=== PATIENT | male | born 1985 | race Caucasian/White ===

== ENCOUNTER 2022-05-30 17:04 | Observation (INO) | payer OTHER, SELFPAY ==
[2022-05-30 17:07] VITALS: BP 159/99; PULSE 110; RESP 18; TEMP 36.6; O2SAT 99; BMI 30.1
[2022-05-30] MEDS: GLUCAGON,HUMAN RECOMBINANT 1 MG/ML VIAL IV (18:11)
[2022-05-30 18:57] LABS: COVID19 -Nasal RAPID Negative (Negative)
--- NOTE | 2022-05-30 19:21 | ED_ITS ---
HPI - Recheck/Abnormal Lab/Rx General Chief Complaint: Recheck/Abnormal Lab/Rx Stated Complaint: choked while eating dinner 30 min ago Time Seen by Provider: 05/30/22 17:57 Source: patient Mode of arrival: Ambulatory History of Present Illness HPI narrative: 36M nonsmoker, nondrinker presents with a choking sensation after eating some beef Maryann earlier tonight. He denies any prior interventions for foreign body but does state that he is had food get caught in the past. He denies any sharp objects and states that he is certain in his a piece of beef. He is had vomiting and trouble controlling secretions but denies any trouble breathing. He is had no chest pain or shortness of breath and denies any fever or chills. He is not dizzy nor weak or lightheaded. Related Data Home Medications Medication Instructions Recorded Confirmed No Known Home Medications 05/30/22 05/30/22 Allergies Allergy/AdvReac Type Severity Reaction Status Date / Time cefaclor [[facility] Allergy Intermediate HIVES Verified 05/30/22 17:07 Review of Systems Review of Systems Narrative: GENERAL: Denies chills, fatigue, malaise, fever, sweats. HEENT: See HPI RESPIRATORY: Denies dyspnea, cough, wheezing, hemoptysis, sputum. CARDIOVASCULAR: Denies chest pain, palpitations, orthopnea, edema, GASTROINTESTINAL: See HPI : Denies dysuria, frequency, incontinence, hematuria, urinary retention. MUSCULOSKELETAL: denies weakness, joint pain, or bony pain SKIN: Denies rash, skin lesions, or other NEUROLOGIC: Denies weakness, headache, numbness, change in speech, confusion, seizures, incoordination. PSYCHIATRIC: No concerning psychosocial issues. 12 point review of systems is negative except for those stated above Patient History Social History household members: none Smoking Status: Current every day smoker alcohol intake: never Smoking Status: Current every day smoker tobacco type: vaping Substance Use Type: marijuana Exam Narrative Exam Narrative: GENERAL: [36] year old patient appears stated age. Well-developed patient, in mild distress. Holding ememsis bag HEAD: Atraumatic. Normocephalic. EYES: Pupils equal round and reactive. Extraocular motions intact. No scleral icterus. No injection or drainage. ENT: Nose without bleeding, purulent drainage. Throat without erythema, tonsillar hypertrophy or exudate. Airway patent. NECK: Trachea midline. Non tender CARDIOVASCULAR: Regular rate and rhythm without murmurs, gallops, or rubs. RESPIRATORY: Clear to auscultation. Breath sounds equal bilaterally. No wheezes, rales, or rhonchi. GASTROINTESTINAL: Abdomen soft, non-tender, nondistended. EXTREMITIES: No edema or joint tenderness. BACK: Nontender without deformity or crepitance. No flank tenderness. NEURO: AOx3. SKIN: No rash or erythema of visible areas Initial Vital Signs Initial Vital Signs: Vital Signs Temperature 97.9 F 05/30/22 17:07 Pulse Rate 110 H 05/30/22 17:07 Respiratory Rate 18 05/30/22 17:07 Blood Pressure 159/99 H 05/30/22 17:07 Pulse Oximetry 99 05/30/22 17:07 Oxygen Delivery Method 05/30/22 17:07 Course Orders Ordered: Sodium Chloride (Normal Saline 0.9%) 1,000 mls @ 125 mls/hr IV CONT MAYURI Last Admin: 05/30/22 20:28 Dose: 125 mls/hr Documented By: NONA Ondansetron HCl (Ondansetron 4 Mg/2 Ml Inj) 4 mg IV Q4HR PRN PRN Reason: Nausea And Vomiting Discontinued Medications Glucagon (Glucagon,Human Recombinant 1 Mg/Ml Vial) 1 mg IV NOW ONE Stop: 05/30/22 17:58 Last Admin: 05/30/22 18:11 Dose: 1 mg Documented By: MARY Reevaluation(s) Reevaluation #1: Patient given glucagon and immediately followed by belkys gutierres, no improvement, still trouble controlling secretions and not able to swallow liquids Consultations Consultation #1: Discussed with on-call surgeon, Dr. Haines, requests patient be admitted on his service kept NPO and will take to the OR tomorrow Vital Signs Vital signs: Vital Signs - 8 hr 05/30/22 17:07 Temperature 97.9 F Pulse Rate 110 H Respiratory Rate 18 Blood Pressure 159/99 H Pulse Oximetry 99 Oxygen Delivery Method Room Air MDM - Recheck/Abnormal Lab/Rx Lab Data Labs: Lab Results 05/30/22 Range/Units 17:25 SARS-CoV-2 (PCR) Negative (Negative) MDM Narrative Medical decision making narrative: [36-year-old male with inability to swallow after eating beef maryann] Multiple etiologies for patient's symptoms considered including, but not limited to: [Esophageal foreign body, stricture, spasm versus other] Consultations: Discussed with Dr. Haines as noted above Patient's symptoms consistent with esophageal food body, no difficulty breathing, no improvement after glucagon, patient will require hospitalization for EGD Findings, diagnosis and plan discussed with patient who understands and agrees Discharge Plan Departure Patient Disposition: Admitted as Observation Clinical Impression: Esophageal foreign body Admit Date/Time: 05/30/22 19:25 Admit Provider: Skinny Haines
[2022-05-30 19:37] VITALS: BMI 30.1
[2022-05-30 20:00] VITALS: BP 134/86; PULSE 93; RESP 17; TEMP 36.3; O2SAT 96
[2022-05-30] MEDS: SODIUM CHLORIDE 0.9% 1,000 ML 125 ML IV (20:28)
[2022-05-31] VITALS (10 sets, daily range): BP systolic 114–152; BP diastolic 76–107; PULSE 73–93; RESP 13–22; TEMP 36.2–36.9; O2SAT 93–98; BMI 30.1
--- NOTE | 2022-05-31 00:58 | PC.NURSE ---
Change in Patient Status 05/30/22@2348 pt notifies this nurse of x2 unmeasured emesis with c/o increased pressure and pain with breathing, w/o c/o difficulty breathing. Pt reports existing hiccups stopped after emesis episode. Emesis contains food particulate and appears clear with coffee grounds. Vital Signs BP: 146/102 (117) left arm; 152/107(130) right arm HR: 73 bpm O2: 97% RA RR: 21 T: 98.4 F (oral) 05/30/22@2358 pt reports pain in throat and breathing is subsiding. Pt readily has access to suction at bedside, call light within reach, and bed L&L position. Pt is quietly resting in bed while intermittently using suction prn. 05/31/22@0001 Attending provider, Skinny Haines, notified by phone of pt's change in condition. No new orders given at this time. Instructed to continue with current POC and to re-evaluate per SOC
[2022-05-31] MEDS: SODIUM CHLORIDE 0.9% 1,000 ML 125 ML IV (05:56)
[2022-05-31] MEDS: ONDANSETRON 4 MG/2 ML INJ IV (08:12)
--- NOTE | 2022-05-31 09:39 | P.HP_ITS ---
History of Present Illness History of Present Illness Date Patient Seen: 05/31/22 Time Patient Seen: 09:39 Chief complaint: choked while eating dinner 30 min ago Narrative: Reggie is a 36-year-old man who came to the ER overnight because he swallowed some meat when he was eating some Maryann which became lodged in his esophagus. He has not been able to swallow anything including his saliva. He did gag and cough up some material in the middle of the night but he still feels as if he has something stuck in his esophagus. He has never had an EGD before. He has experienced more and more difficulty swallowing certain types of food, mostly meat, in the past several months but he has never had it this bad before and has never come to the emergency room before last night. He has a history of using chewing tobacco in the past. Patient History Family & Social History Social History: household members none Prior Living Arrangements Apartment/Condo Safety & Behavioral: Feels Safe in Current Yes Environment Been Physically Hurt or No Threatened By a Person Tobacco & Substance use: Tobacco type e-cigarettes Smoking Status Current every day smoker alcohol intake never Substance Use Type marijuana Meds Home Medications and Allergies Home Medications Medication Instructions Recorded Confirmed Type No Known Home Medications 05/30/22 05/30/22 History Allergies Allergy/AdvReac Type Severity Reaction Status Date / Time cefaclor [From [facility]] Allergy Intermediate HIVES Verified 05/30/22 17:07 Exam Vital Signs (past 8 hours): - 05/31/22 06:00 05/31/22 08:40 Temperature 97.2 F L 97.6 F Pulse Rate 80 80 Respiratory Rate 18 17 Blood Pressure 140/90 152/91 H Pulse Oximetry 95 96 Oxygen Flow Rate 0 0 Oxygen Delivery Method Room Air Oxygen Flow Rate 0 Const General: No acute distress Orientation: alert and awake Resp Effort & Inspection: normal respiratory effort Objective Labs Labs: Laboratory Results - last 24 hr 05/30/22 17:25 SARS-CoV-2 (PCR) Negative Assessment & Plan Assessment and plan (1) Esophageal foreign body: Qualifiers: Encounter type: initial encounter Qualified Code(s): T18.108A - Unspecified foreign body in esophagus causing other injury, initial encounter Status: Acute Plan Recommend esophagogastroduodenoscopy and removal of foreign body. This will be performed by me or one of my partners as soon as there is OR availability. Time Spent With Patient Critical Care time: I spent a total of [] minutes of critical care time on this patient's care today; this time is exclusive of procedural time. Quality VTE Deep Vein Thrombosis/Pulmonary Embolism Present on Admission: No
--- NOTE | 2022-05-31 14:34 | CM.DANOTE ---
Initial DCP Assessment Note Pt is a 36 yo male, resident of [place] , arrives with persistent feeling that something is stuck in his esophagus after eating meat during a recent meal. Patient scheduled for EGD and likely removal of foreign body today by general surgery team PCP: None Listed Payer: Nikunj RUTH Reviewed chart, pt discussed in multidisciplinary rounds this morning. 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 Patient expected to discharge home w/friends and family No barriers identified at this time to patient's safe discharge home w/family to assist; close outpatient f/u recommended. CM team will plan to follow closely in case any DC needs or concerns arise NATA Pérez Discharge Planning/Care Management CM Discharge Assessment Start: 05/31/22 14:30 Freq: Status: Active Protocol: Document 05/31/22 14:30 ANISA (Rec: 05/31/22 14:34 ANISA [id number]) Discharge Planning Assessment Assigned Layer Out NATA Bain DPOA/Assigned Designee Name Jada Recinos Contact Information [phone] Advance Directives? No History Provided By Patient,Medical Record Prior Living Arrangements Apartment/Condo Household Members none Type of transporation used prior to Drives own vehicle admit Independent with ADL's Yes Is patient alert and oriented? Yes Barriers to Discharge No Comment Home upon discharge expected Discharge Plan Home Transportation Arrangement Family Referrals Initiated None needed
--- NOTE | 2022-05-31 14:47 | PM.PREOP ---
Pre-operative Note Interval Note History & Physical reviewed/Exam performed by Physician: Yes Changes to H&P: No H&P completed within 30 days and has changed as indicated here:: 36-year-old man with a esophageal foreign body here for therapeutic EGD. Overview procedure was discussed with the patient. Procedural risks bleeding, esophageal injury were discussed. Questions answered he is in agreement with this plan.
--- NOTE | 2022-05-31 14:49 | PM.OP.EGD ---
Operative Date/Time/Diagnoses Date of procedure: 05/31/22 Time of procedure: 14:49 Pre-op diagnosis: Esophageal foreign body Post-op diagnosis: same Procedure & Clinicians Study performed: Esophagoduodenoscopy Same procedure as scheduled: Yes Indications: Esophageal foreign body Surgeon: Guillaume Rosado Procedure Notes Procedure in detail: Patient placed in left lateral decubitus position. Time out was performed. Procedural sedation was administered by anesthesia. A bite block was placed. the scope was inserted into the mouth and advanced through the esophagus. There was no esophageal obstruction, stricture or significant esophagitis. Stomach was largely normal in its appearance. The pylorus was intubated and the duodenum was normal to the 2nd portion. The scope was retroflexed within the stomach and there was no hiatal hernia. The scope was withdrawn into the esophagus the Z line was seen at 38 cm from the incisions. Stomach was desufflated and scope removed. Patient tolerated procedure well. Specimen(s): none sent Impression: Normal esophagoduodenoscopy. Post-procedure Plan for aftercare: May discharge home Disposition: same day surgery
== END 2022-05-31 19:00 | disposition home or self-care (01) ==
LOC: ED 18:17 → AC 19:25
PROVIDERS: Surgery; Admitting Provider Surgery; Emergency Provider Emergency Medicine; Visit Provider Surgery
PROC: 0DJ08ZZ Inspection of Upper Intestinal Tract, Via Natural or Artificial Opening Endoscopic (ICD-10-PCS; CPT 43235; principal; 2022-05-31 15:45)
DX: T18.108A Unspecified foreign body in esophagus causing other injury, initial encounter (principal); Z20.822 Contact with and (suspected) exposure to COVID-19
CPT/HCPCS: 43235; 82962; 87635; 96361; 96374; 96375; 99221; 99284; C9803; G0378; J1610; J2405; J2704